=== PATIENT | male | born 1970 | race Caucasian/White ===

== ENCOUNTER 2020-12-10 14:34 | Emergency (ER) | payer MEDICARE ==
[~2020-12-10 14:34] MED LIST: BACTRIM DS TAB1 EACH PO; BACTROBAN OINT22 GM EXT; CLEOCIN HCL300 MG PO; IBU800 MG PO; IBUPROFEN600 MG PO; KEFLEX CAP 500500 MG PO; ZOFRAN ODT 4 MG4 MG SL
[2020-12-10] MEDS ORDERED: CEPHALEXIN500 M1 PO (16:13)
[2020-12-10] MEDS ORDERED: BACTRIM DS TAB1 EACH PO (16:13)
[2020-12-10] MEDS ORDERED: HYDROCODON-ACE1 EAC4 PO (16:13)
== END 2020-12-10 16:27 | disposition home or self-care (01) ==
LOC: ER1 14:34
DX: L02.01 Cutaneous abscess of face (principal); L03.213 Periorbital cellulitis
CPT/HCPCS: 99283

== ENCOUNTER 2021-06-14 04:57 | Emergency (ER) | payer MEDICARE ==
[~2021-06-14 04:57] MED LIST changes: +CEPHALEXIN500 M1 PO; +HYDROCODON-ACE1 EAC4 PO
[2021-06-14 05:38] LABS: HEMOGLOBIN 15.1 gm/dl (14.0-17.5); RED BLOOD COUNT 5.53 M/UL (4.20-5.50); WHITE BLOOD COUNT 16.2 K/UL (4.5-11.0)
== END 2021-06-14 13:55 | disposition other institution (70) ==
LOC: ER1 04:57
PROVIDERS: Physician Assistant
DX: N13.2 Hydronephrosis with renal and ureteral calculous obstruction (principal); K59.00 Constipation, unspecified
CPT/HCPCS: 80053; 81001; 83605; 83690; 85025; 86140; 96372; 96374; 96375; 99284; J0500; J0696; J1885; J2405; Q9967